=== PATIENT | female | born 1950 | race Caucasian/White ===

== ENCOUNTER → 2021-06-20 | Outpatient (CLI) | payer OTHER | LOC: MRI 09:31 | DX: H53.451 Other localized visual field defect, right eye (principal); I67.89 Other cerebrovascular disease | CPT/HCPCS: 36415; 70553; 82565; 84520; A9577 ==

== ENCOUNTER → 2021-07-29 | Outpatient (CLI) | payer MEDICARE ==
[2021-07-29 13:13] LABS: BUN/CREATININE RATIO 20 (0-10)
== END ==
LOC: LAB 12:01
PROVIDERS: Hospitalist
DX: N18.2 Chronic kidney disease, stage 2 (mild) (principal); E83.52 Hypercalcemia
CPT/HCPCS: 36415; 80053; 82570; 83970; 84100; 84156

== ENCOUNTER → 2021-12-30 | Outpatient (CLI) | payer MEDICARE | LOC: CT 09:13 | DX: I65.29 Occlusion and stenosis of unspecified carotid artery (principal); R90.89 Other abnormal findings on diagnostic imaging of central nervous system; H53.9 Unspecified visual disturbance; R90.82 White matter disease, unspecified | CPT/HCPCS: 70496; Q9967 ==

== ENCOUNTER → 2022-02-27 | Outpatient (CLI) | payer MEDICARE ==
[~2022-02-27] MED LIST: BRIMONIDINE TAR15 ML OU; CILOSTAZOL50 MG PO; GABAPENTIN800 MG PO; HYDROCODON-ACE1 EAC6 PO; LATANOPROST 0.7.5 ML OU; LIPITOR40 MG PO; NORVASC10 MG PO
[2022-02-27 13:51] LABS: BUN/CREATININE RATIO 17 (0-10)
== END ==
LOC: LAB 12:20
PROVIDERS: Internal Medicine Nephrology
DX: N18.2 Chronic kidney disease, stage 2 (mild) (principal); E83.52 Hypercalcemia
CPT/HCPCS: 36415; 80053; 81001; 82570; 83970; 84100; 84156

== ENCOUNTER → 2022-03-03 | Outpatient (CLI) | payer MEDICARE ==
[2022-03-03 13:53] LABS: HEMOGLOBIN 12.2 gm/dl (12.3-15.3); RED BLOOD COUNT 3.76 M/UL (4.00-5.10); WHITE BLOOD COUNT 9.6 K/UL (4.5-11.0)
== END ==
LOC: OPSV2 12:30
PROVIDERS: Obstetrics & Gynecology
DX: Z01.818 Encounter for other preprocedural examination (principal); N81.4 Uterovaginal prolapse, unspecified
CPT/HCPCS: 36415; 85025; 93005

== ENCOUNTER 2022-03-16 08:14 | Day surgery (SDC) | payer MEDICARE ==
[~2022-03-16] VITALS: Ht 165.1 cm; Wt 77.6 kg
[2022-03-16] MEDS ORDERED: HYDROCODONE-AC1 EACH PO (12:09)
[2022-03-16] MEDS ORDERED: IBUPROFEN600 MG PO (12:09)
[2022-03-16] MEDS ORDERED: DOCUSATE SODIU250 MG PO (12:09)
--- NOTE | 2022-03-17 12:35 | NUR ---
PATIENT HOME MED REC NOT RECONCILED FOR DISCHARGE. NOTIFIED AND VO ORDER OBTAINED TO CONTINUE ALL HOME MEDS.
== END 2022-03-17 12:56 | disposition home or self-care (01) ==
LOC: OR 08:14 → M/S 18:45 → OR 03-17 12:56
DX: N81.3 Complete uterovaginal prolapse (principal); N72 Inflammatory disease of cervix uteri; N80.0 Endometriosis of uterus; N88.8 Other specified noninflammatory disorders of cervix uteri; N83.331 Acquired atrophy of right ovary and fallopian tube; N73.6 Female pelvic peritoneal adhesions (postinfective); I10 Essential (primary) hypertension; E78.5 Hyperlipidemia, unspecified; Z87.891 Personal history of nicotine dependence; Z79.82 Long term (current) use of aspirin
CPT/HCPCS: C1769; J0690; J1100; J2001; J2370; J2405; J2704; J3010; J7050

== ENCOUNTER → 2022-04-03 | Outpatient (CLI) | payer MEDICARE ==
[~2022-04-03] MED LIST changes: +DOCUSATE SODIU250 MG PO; +HYDROCODONE-AC1 EACH PO; +IBUPROFEN600 MG PO
== END ==
LOC: CT 09:52
DX: Z00.00 Encounter for general adult medical examination without abnormal findings (principal); I65.23 Occlusion and stenosis of bilateral carotid arteries; R90.82 White matter disease, unspecified; H53.9 Unspecified visual disturbance
CPT/HCPCS: 36415; 70498; 82565; 84520; Q9967